=== PATIENT | female | born 1965 | race Caucasian/White ===

== ENCOUNTER 2019-01-22 07:19 | Day surgery (SDC) | payer MEDICAID ==
[2019-01-22] MEDS ORDERED: SOD CHLORIDE 0.9% 1,000 ML IV ×2 (08:07→08:30)
[2019-01-22] MEDS ORDERED: CEFAZOLIN 1 GM/50 ML (PMX) 50 ML IVPB ×2 (08:30→09:27)
[2019-01-22] MEDS ORDERED: POLYMYXIN/BACITRACIN 1L IRRIG IRR (08:30)
[2019-01-22] MEDS ORDERED: HEPARIN 1000 UNITS/ML 10 ML INJ (09:02)
[2019-01-22] MEDS ORDERED: MIDAZOLAM 1 MG/ML 2 ML INJ (09:58)
[2019-01-22] MEDS ORDERED: FENTAnyl 50 MCG/ML VIAL (09:58)
== END 2019-01-22 19:00 | disposition home or self-care (01) ==
LOC: SDS 07:19
DX: C50.912 Malignant neoplasm of unspecified site of left female breast (principal)
CPT/HCPCS: 36561; 76937; 76942